=== PATIENT | female | born 2000 | race Caucasian/White ===

== ENCOUNTER 2022-02-21 18:08 | Emergency (ER) | payer OTHER ==
[~2022-02-21] VITALS: Ht 154.9 cm; Wt 55.5 kg
[2022-02-21] MEDS ORDERED: MACROBID 100 M100 MG PO (20:38)
== END 2022-02-21 21:46 | disposition home or self-care (01) ==
LOC: FSED 18:33
DX: O23.41 Unspecified infection of urinary tract in pregnancy, first trimester (principal); M54.50 Low back pain, unspecified; V43.52XA Car driver injured in collision with other type car in traffic accident, initial encounter; Y92.488 Other paved roadways as the place of occurrence of the external cause
CPT/HCPCS: 76817; 81003; 81025; 99283